=== PATIENT | male | born 1950 | race Caucasian/White ===

== ENCOUNTER → 2021-10-22 | Outpatient (CLI) | payer OTHER ==
[~2021-10-22] MED LIST: ALDACTONE 25MG25 MG PO; ASPIR 8181 MG PO; CATAPRES 0.1MG0.1 MG PO; COREG 25MG TAB25 MG PO; COZAAR100 MG PO; DEPO-TESTO200 MG/1 M IM; FERROUS SULFAT325 M2 PO; HYDRALAZINE HCL50 MG PO; HYGROTON TAB 2525 MG PO; LASIX40 MG PO; LIPITOR TAB 1010 MG PO; METFORMIN HCL500 M1 PO; NORVASC 5 MG TAB5 MG PO; PROTONIX 40 MG40 M1 PO; STARLIX 120 MG120 MG PO; TRESIBA100 UNIT/1 SQ; VITAMIN B COMP1 EAC1 PO; VITAMIN D 11000 UNIT PO; ZANAFLEX4 MG PO
== END ==
LOC: MRI 13:13
DX: H93.12 Tinnitus, left ear (principal); H91.22 Sudden idiopathic hearing loss, left ear; R42 Dizziness and giddiness; R94.02 Abnormal brain scan
CPT/HCPCS: 70553; A9577